=== PATIENT | female | born 1965 ===

== ENCOUNTER 2016-11-17 07:16 | Day surgery (SDC) | payer MEDICAID ==
[2016-11-15 08:00] VITALS: BMI 21.5
[2016-11-17 08:05] VITALS: O2SAT 100
[2016-11-17] MEDS ORDERED: Midazolam 2 MG/2 ML VIAL ONE (08:31)
[2016-11-17] MEDS ORDERED: Propofol 10 mg/ml Inj (20 ML) ONE (08:32)
[2016-11-17] MEDS ORDERED: Lactated Ringer's 1,000 ML IV ONE (08:40)
[2016-11-17] MEDS ORDERED: ceFAZolin IV 1 gm in Dextrose 1 GM/50 ML BAG IVPB ONE (08:47)
--- NOTE | 2016-11-17 09:16 | PCM.SURG1 ---
Surgeon's Initial Post Op Note - Surgeon's Notes Surgeon: dr sanchez Cabinetmaker Apprentice: none Type of Anesthesia: General LMA Anesthesia Administered By: dr wagoner Pre-Operative Diagnosis: 51 y with AUB R/o polyp Operative Findings: see the op reoprt Post-Operative Diagnosis: same with polyp Operation Performed: myasure d &c, hyster Specimen/Specimens Removed: ecc. emc. polyp Estimated Blood Loss: EBL {In ML}: 20 Blood Products Given: N/A Drains Used: No Drains Post-Op Condition: Good Date of Surgery/Procedure: 11/17/16 Time of Surgery/Procedure: 10:00
[2016-11-17] MEDS ORDERED: Lactated Ringer's 500 ML IV ONE (09:20)
[2016-11-17] MEDS ORDERED: Lactated Ringer's 1,000 ML IV SCH (09:30)
[2016-11-17 11:26] VITALS: BP 120/80; PULSE 64; RESP 18; TEMP 97.8
--- NOTE | 2016-11-17 13:58 | OP ---
PROCEDURE DATE: PREOPERATIVE DIAGNOSES: A 51-year-old 2, para 2 with abnormal uterine bleeding, rule out poly. POSTOPERATIVE DIAGNOSES: A 51-year-old 2, para 2 with abnormal uterine bleeding, rule out polys, and endometrial polyp. SURGEON: Fco Yu MD TURKEY ROLL MAKER: None. TYPE OF ANESTHESIA: General anesthesia. ANESTHESIA ADMINISTERED BY: Dr. Ag. ESTIMATED BLOOD LOSS: 20 mL. DEFICITS: 300 mL. COMPLICATIONS: None. PROCEDURE: Dilation and curettage, cystoscopy, and MyoSure. DESCRIPTION OF PROCEDURE: After informed consent was obtained, the patient was brought to the operating room, placed on the table where general anesthesia was given. Once the anesthesia was given, the patient was prepped and draped in the normal sterile fashion. Examination of the uterus to be revealed to be 8-week size. No pelvic or adnexal masses. After that, anterior lip of the cervix was taken out the tenaculum. Gentle dilatation of the cervix was done. Hysteroscope was introduced and found to be polyp on the upper part of the posterior wall of the uterus. Pictures were taken and decision was made to use the MyoSure. MyoSure was used to remove the polyp. After that, scrapings from all the lópez of the uterus was done. ECC was done, it was sent to the pathology. Tenaculum was taken out and from anterior lip of wall of the cervix. The patient tolerated the procedure well. Lap, sponge, and instrument counts were correct x2. Followup in the office in 2 weeks. Cynthia and Silver to go home with. Fco Yu MD
== END 2016-11-17 11:45 | disposition home or self-care (01) ==
LOC: C.SDS 07:16
PROVIDERS: ATTEND Obstetrics & Gynecology
DX: N84.0 Polyp of corpus uteri (principal); N93.9 Abnormal uterine and vaginal bleeding, unspecified; N72 Inflammatory disease of cervix uteri
CPT/HCPCS: 58558; 88305; J0690; J1100; J2001; J2250; J2270; J2405; J2704; J3010; J7120